=== PATIENT | male | born 1955 | race Caucasian/White ===

== ENCOUNTER → 2018-09-15 | Outpatient (CLI) | payer MEDICARE ==
--- NOTE | 2018-09-15 18:54 | US ---
Exam: LOWER EXTREMITY VENOUS INSUFFICIENCY DATE: 09/15/2018. SIDE PERFORMED: Bilateral TECHNIQUE: Color flow is present and patency is documented in the following vessels. FINDINGS: No DVT or SVT is noted. Vessels scanned: EIV Common Femoral Vein Deep Femoral Vein Femoral Vein Popliteal Vein Proximal Calf Veins Greater Saph Vein Upper Small Saph Vein There is venous reflux noted at the following venous levels: -Entire right system except mid and lower popliteal vein. -Left EIV, GSV, DFV, FV prox, mid, IMPRESSION: 1. No evidence for DVT within the bilateral lower extremities imaged from the groin to the upper calv es. 2. Venous reflux is noted throughout the right lower extremity except for the mid and lower popliteal vein. 3. Venous reflux is noted within the left external iliac vein, greater saphenous vein, deep femoral v ein, as well as the upper and mid femoral vein.
--- NOTE | 2018-09-21 10:01 | P.ARTDOP ---
Arterial Doppler LOWER EXTREMITY ARTERIAL DOPPLER: DATE OF SERVICE: 09/15/2018 Reason for study: Right lower leg ulcer. Doppler waveforms: Multiphasic bilaterally throughout. Pulse volume recording: Normal configuration. Some blunting at the digital level. Pressure gradients: None. Ankle-brachial indices: Greater than 1 bilaterally. Toe pressures: 110 on the right, 110 on the left Impression: Normal study.
== END ==
LOC: RADUSWWP 13:35
PROVIDERS: ATTEND Family Medicine
DX: I87.2 Venous insufficiency (chronic) (peripheral) (principal); M79.605 Pain in left leg
CPT/HCPCS: 93923; 93970

== ENCOUNTER → 2023-03-12 | Outpatient (CLI) | payer MEDICARE ==
[2023-03-12 16:21] LABS: Basophils # (A) 0.04 X 10*3/uL (0.00-0.10); Basophils % (A) 0.7 %; Eosinophils % (A) 6.8 %; HCT 39.2 % (39.6-50.0); HGB 12.4 g/dL (13.0-17.0); Immature Grans, Automated 0.3 %; Lymphocytes # (A) 0.99 X 10*3/uL (0.90-5.00); MCH 28.1 pg (27.0-32.0); MCHC 31.6 g/dL (32.0-37.0); MCV 88.7 fL (80.0-97.0); Mean Platelet Volume 10.6 fL (9.5-12.2); Monocytes # (A) 0.71 X 10*3/uL (0.20-1.00); Monocytes % (A) 12.2 %; NRBC Per 100 WBC 0 /100 WBCS (0.0-0.0); Neutrophils # (A) 3.68 X 10*3/uL (1.80-7.70); Platelet Count 194 X 10*3/uL (140-440); RBC 4.42 X 10*6/uL (4.40-5.60); RDW 14.1 % (11.5-14.5); WBC 5.84 X 10*3/uL (4.50-10.00)
[2023-03-12 16:47] LABS: Non-African American GFR(CKD) 68.1 (60.0-200.0)
[2023-03-12 17:07] LABS: Hepatitis B Surface Antigen Nonreactive (Nonreactive); Hepatitis C IgG Antibody Nonreactive (Nonreactive)
[2023-03-12 17:59] LABS: Hepatitis B Surface AB- Quant 3.5 mIU/mL; Hepatitis B Surface Antibody Nonreactive (Nonreactive)
== END | disposition home or self-care (01) ==
LOC: LABWHC1 10:10
PROVIDERS: ATTEND Student in an Organized Health Care Education/Training Program
DX: L40.0 Psoriasis vulgaris (principal)
CPT/HCPCS: 36415; 82565; 84450; 84460; 85025; 86480; 86704; 86706; 86803; 87340

== ENCOUNTER → 2023-06-18 | Outpatient (CLI) | payer MEDICARE ==
--- NOTE | 2023-06-18 12:40 | CA ---
Exercise Nuclear Stress Test Report Name: César Reyes Exam Date: 06/18/2023 10:01 Exam Location: [facility] Ht (in): 70 Wt (lb): 240 BSA: 2.26 Ordering Phys: Kyrie Salmeron MD Referring Phys: Kyrie Salmeron MD Technologist: Wolf Lorenzana Age: 67 Gender: M : 1955 Procedure CPT: Indications: I25.119 ATHSCL HEART DISEASE OF [place] COR I65.23 ICD-10 Codes: Patient History: Medications: Meds past 24 hrs: Pretest Chest Pain: STRESS TEST Protocol Exercise Duration (min:sec): 04:[address] Depressions (mm): Angina Score: Hassan Score: Resting HR (bpm): 123 Peak HR (bpm): 142 Resting BP (mmHg): 135 / 73 Peak BP (mmHg): 181 / 70 MPHR: 151 Target HR: 128 % MPHR: 94 METS: 6.6 Total Dose: Peak Dose: Atropine: Double Product: 61832 BP Response: Stress Termination: Reached target heart rate Stress Symptoms: SHORTNESS OF BREATH Stress Summary: ECG ANALYSIS Resting ECG: Sinus tachycardia with nonspecific T-wave flattening in lead III. heart rate 114 beats a minute Stress ECG: There was [address] depressions in inferolateral leads at peak stress. There were no sustained arrhythmias ectopic beats CONCLUSIONS Fair exercise tolerance for patient's age. Patient walked for 4 minutes and 10 seconds achieving 6.6 METS Normal hemodynamic and clinical response to exercise Abnormal ECG response to exercise. Please refer to the nuclear perfusion imaging report dictated separately by radiology team for complete interpretation of this study Dr Jr Salas (Electronically Signed) Final Date: 18 June 2023 12:39
--- NOTE | 2023-06-20 22:21 | US ---
EXAMINATION TYPE: US carotid duplex BILAT DATE OF EXAM: 06/18/2023 COMPARISON: NONE CLINICAL INDICATION: Male, 67 years old with history of I65.23 Carotid stenosis bilateral; CAD TECHNIQUE: Carotid duplex ultrasound examination. Indirect Doppler criteria was utilized. FINDINGS: EXAM MEASUREMENTS: RIGHT: Peak Systolic Velocity (PSV) cm/sec ----- Right CCA: 74.1 ----- Right ICA: 94.3 ----- Right ECA: 103 ICA/CCA ratio: 1.27 RIGHT: End Diastole cm/sec ----- Right CCA: 22.1 ----- Right ICA: 21.3 ----- Right ECA: 0.0 LEFT: Peak Systolic Velocity (PSV) cm/sec ----- Left CCA: 85.7 ----- Left ICA: 72.3 ----- Left ECA: 75.7 ICA/CCA ratio: 0.84 LEFT: End Diastole cm/sec ----- Left CCA: 19.8 ----- Left ICA: 27.0 ----- Left ECA: 4.0 VERTEBRALS (direction of flow): Right Vertebral: unable to visualize Left Vertebral: Antegrade Rhythm: Normal [employer] NOTES: Moderate plaque bilateral bifurcations. No evidence of increased velocities IMPRESSION: Less than 50% stenosis of the bilateral carotid bifurcations. Criteria for Assigning % of Stenosis / Diameter reduction (Estimation based on the indirect measurements of the internal carotid artery velocities (ICA PSV). 1. Normal (no stenosis)=ICA PSV < 125 cm/s: ratio < 2.0: ICA EDV<40 cm/s. 2. Less than 50% stenosis=ICA PSV < 125 cm/s: ratio < 2.0: ICA EDV<40 cm/s. 3. 50 to 69% stenosis=ICA PSV of 125 to 230 cm/s: ration 2.0 ? 4.0: ICA EDV 40-100 cm/s. 4. Greater than 70% stenosis to near occlusion= ICA PSV > 230 cm/s: ratio > 4.0: ICA EDV > 100 cm/s. 5. Near occlusion= ICA PSV velocities may be low or undetectable: variable ratio and ICA EDV. 6. Total occlusion=unable to detect flow.
== END | disposition home or self-care (01) ==
LOC: RADNMMAIN 07:57
PROVIDERS: ATTEND Internal Medicine
DX: I65.23 Occlusion and stenosis of bilateral carotid arteries (principal); I25.119 Atherosclerotic heart disease of native coronary artery with unspecified angina pectoris; R94.31 Abnormal electrocardiogram [ECG] [EKG]
CPT/HCPCS: 93017; 93880; 78452; A9500

== ENCOUNTER 2023-07-15 09:10 | Day surgery (SDC) | payer MEDICARE ==
[~2023-07-15 09:10] MED LIST: ALPRAZolam 0.25 MG TAB PO PRN; ALPRAZolam 0.5 MG TAB PO PRN; ASPIRIN 325 MG TAB PO STA; ATORVASTATIN 80 MG TAB PO STA; HEPARIN SODIUM,PORCINE (1 ML) 2,500 UNIT in SODIUM CHLORIDE 0.9% 250 ML IRRIGATION PRN; HEPARIN SODIUM,PORCINE 10,000 UNIT in SODIUM CHLORIDE 0.9% 1,000 ML IRRIGATION PRN; NITROGLYCERIN SL TABS 0.4 MG TAB SUBLINGUAL PRN
[2023-07-15] MEDS ORDERED: SODIUM CHLORIDE 0.9% 1,000 ML IV ONE (09:16)
[2023-07-15 09:30] VITALS: RESP 16
[2023-07-15 09:33] LABS: Glucose,Whole Blood 139 mg/dL (70-110)
[2023-07-15] MEDS ORDERED: HEPARIN SODIUM 1,000 UN/ML (10ML VL) ONE (10:34)
[2023-07-15] MEDS ORDERED: MIDAZOLAM 2 MG/2 ML VIAL IVP ONE ×2 (10:54→11:30)
[2023-07-15] MEDS ORDERED: LIDOCAINE 1% INJ 10MG/ML (20 ML MDV) SQ ONE (10:55)
[2023-07-15] MEDS ORDERED: VERAPAMIL SYRINGE (5 MG/10 ML) INTRAARTER ONE (10:56)
[2023-07-15] MEDS: HEPARIN SODIUM 1,000 UN/ML (10ML VL) IV ONE ×3 (10:58→11:29)
[2023-07-15] MEDS ORDERED: TICAGRELOR 90 MG TAB ONE (11:23)
[2023-07-15] MEDS ORDERED: TICAGRELOR 90 MG TAB PO ONE (11:25)
[2023-07-15] MEDS ORDERED: IOPAMIDOL-370 100ML BTL INJ ONE (11:47)
[2023-07-15] MEDS ORDERED: RISANKIZUMAB RZAA 150 MG/ML INJ SCH (12:00)
[2023-07-15] MEDS ORDERED: traMADol 50 MG TAB PO PRN (12:00)
[2023-07-15] MEDS ORDERED: ATROPINE SULFATE 0.1 MG/ML 10ML SYRINGE IV PRN (12:01)
[2023-07-15] MEDS ORDERED: ZOLPIDEM 5 MG TAB PO PRN (12:01)
[2023-07-15] MEDS ORDERED: RX INFO: IV CONTRAST WAS GIVEN 1 EACH MISC MISCELLANE PRN (12:01)
[2023-07-15] MEDS ORDERED: MAG HYDROX/AL HYDROX/SIMETH 30 ML CUP PO PRN (12:01)
[2023-07-15] MEDS ORDERED: NITROGLYCERIN SL TABS 0.4 MG TAB SUBLINGUAL PRN (12:01)
--- NOTE | 2023-07-15 12:13 | P.PCN ---
Date of Procedure: 07/15/23 Operative Findings: CARDIAC CATHETERIZATION AND PERCUTANEOUS CORONARY INTERVENTION PERFORMING PHYSICIAN: Donnell Gottlieb MD, VI PROCEDURE PERFORMED: 1. Selective right and left coronary angiogram 2. Successful stenting of proximal LAD using 3.25 x 18 mm Xience PORTIA with an excellent angiographic results 3. iFR of the LAD and left main and RCA 4. Adjunctive use of an the vascular imaging 5. Ultrasound guided access of the right radial artery INDICATION: This is a 68-year-old gentleman with CAD and prior stenting of the LAD and diagonal in 1995 as well as hypertension and dyslipidemia was experiencing symptoms of chest discomfort and he underwent myocardial perfusion imaging stress is that showed reversible defect anteriorly. In the light of that a heart catheterization was advised COMPLICATION: None APPROACH: Right radial artery LEVEL OF SEDATION: Moderate with the sedation time off 44 minutes PROCEDURE DESCRIPTION: After obtaining an informed consent the patient was brought to the cardiac catheter builder. The right radial artery was cannulated using puncture technique under ultrasound guidance and the micropuncture wire passed easily then I placed a 6- Turkmen 11 cm sheath at the right radial artery. I gave the patient 2 mg of verapamil intra-arterial and heparin IV was given with continuous ACT monitoring. After that I did selective right and left coronary angiogram using JR4 and JL 3.5 catheters. After that I did an FFR of the LAD and left main and then I did stenting of the LAD with adjunctive use of intravascular imaging. Subsequently I did an FFR of the right coronary artery. The procedure was completed was no complication SELECTIVE CORONARY ANGIOGRAM: The right coronary artery: Large caliber vessel and a dominant vessel. The RCA is calcified. The proximal and mid RCA has intermediate to severe lesion appears to be in the range of 60%. The lesion was flow limiting by Doppler wire. Please note that the RCA is calcified. The RCA distally appears to have mild disease only. Then it bifurcates into PDA and PLV branches. The PDA branch appeared to be angiographically normal. The PLV branch which is a large caliber vessel has ostial lesion appears to be in the range of 80%. Left main: Has intermediate lesion appeared to be in the range of 30-40%. We did a Doppler wire measurement and that came in to be nonischemic with iFR of 0.98 The left circumflex: Large caliber vessel and nondominant vessel. The proximal LCx appears to have intermediate lesion appeared to be in the range of 60-70%. Gives rise into an OM1 which has mild disease only. The left anterior descending artery: The proximal LAD stented by the bifurcation of a large diagonal branch which is a stented as well. The diagonal is closed. The stent appeared to have in-stent restenosis in the range of 60%. We did a Doppler measurement with iFR and that came in to be at 0.86. The mid LAD has mild disease only and LAD distally appears to have mild disease only PCI OF THE LAD: Anticoagulation was initiated using heparin with continuous ACT monitoring. Subsequently after equalizing between the Doppler wire and guiding catheter which was JL 3.5 guiding catheter the left main was engaged and the wire was advanced distal to the lesion in the mid LAD. The iFR came in to be at 0.86. I did pull back across the lesion in the LAD and I did perform iFR of the left main and that came in to be at 0.98. After that I decided to intervene on the LAD. I did wire the LAD using a run-through wire. Subsequently I did intravascular ultrasound and that showed a diameter around 3.25 mm. I predilated using 3 mm balloon before I deployed 3.25 x 18 mm stent where the stent was positioned under fluoroscopy guidance and deployed under 14 ashok. S ubsequently I postdilated using 3.5 mm noncompliant balloon. Final angiogram was performed and showed good angiographic results and then I did intravascular ultrasound again and that showed that the stent was well opposed and well expanded. After that I did iFR of the right coronary artery. After zeroing the Doppler wire and equalizing between the Doppler wire and guiding catheter which was JR4 guiding catheter I did advance the wire distal to the lesion in the mid right coronary artery. And the iFR came in to be abnormal at 0.79. The procedure was completed was no complication CONCLUSION: 1. Intermediate disease involving the mid shaft of the left main. The disease is not flow-limiting by Doppler wire 2. Intermediate in-stent restenosis of the proximal LAD. The disease is flow- limiting by Doppler wire. I did perform successful stenting of the LAD 3. Intermediate disease involving the proximal and mid RCA. The disease is flow-limiting by Doppler wire. POSTPROCEDURE MANAGEMENT: 1. Dual antiplatelet therapy using aspirin and Brilinta for at least 6 month 2. PCI of the RCA to be performed at the second session giving that we reached almost the maximum contrast limits of the patient
[2023-07-15] MEDS ORDERED: SODIUM CHLORIDE 0.9% 1,000 ML in EMPTY BAG 1 BAG IV SCH (12:15)
[2023-07-15 16:39] LABS: Glucose,Whole Blood 103 mg/dL (70-110)
[2023-07-15] MEDS: SODIUM CHLORIDE 0.9% 1,000 ML in EMPTY BAG 1 BAG IV SCH ×3 (18:49→23:39)
[2023-07-15 19:36] LABS: Glucose,Whole Blood 124 mg/dL (70-110)
[2023-07-15] MEDS: TICAGRELOR 90 MG TAB PO SCH (19:44)
[2023-07-15] MEDS: METOPROLOL SUCCINATE (ER) 50 MG TAB.ER.24H PO SCH (19:44)
[2023-07-15] MEDS: ISOSORBIDE MONONITRATE 20 MG TAB PO SCH (20:26)
[2023-07-16 05:43] LABS: Glucose,Whole Blood 123 mg/dL (70-110)
[2023-07-16 07:52] LABS: African American GFR (CKD) >90 (>60 ml/min/1.73 sqM); Non-African American GFR(CKD) 88 (>60 ml/min/1.73 sqM)
[2023-07-16] MEDS: ISOSORBIDE MONONITRATE 20 MG TAB PO SCH (08:02)
[2023-07-16] MEDS: METOPROLOL SUCCINATE (ER) 50 MG TAB.ER.24H PO SCH (08:02)
[2023-07-16] MEDS: TICAGRELOR 90 MG TAB PO SCH (08:02)
[2023-07-16 08:15] VITALS: BP 120/78; PULSE 80; TEMP 98.5
[2023-07-16] MEDS ORDERED: ASPIRIN 81 MG PO SCH (09:00)
[2023-07-16] MEDS ORDERED: LOSARTAN-HCTZ 50-12.5 MG 1 EACH TAB PO SCH (09:00)
[2023-07-16] MEDS ORDERED: ATORVASTATIN 40 MG TAB PO SCH (09:00)
[2023-07-16] MEDS ORDERED: MULTIVITAMINS, THERA 1 EACH TAB PO SCH (09:00)
--- NOTE | 2023-07-16 12:31 | P.DS ---
Providers Attending physician: Donnell Gottlieb Consults: 07/15/23 12:01 Consult Physician Routine Consulting Provider: [facility] Consult Reason/Comments: Post Interventional patient Do you want consulting provider notified?: Already Contacted Primary care physician: Kyrie Salmeron [facility] Course: The patient is a pleasant 68-year-old gentleman who underwent yesterday successful stenting of the LAD with a good angiographic results and with no complication Please refer to my procedure note for details The patient was seen and evaluated this morning. He is asymptomatic and hemodynamically stable. The patient is going to be discharged home on dual antiplatelet therapy and I will follow-up with the patient next week in the office Patient Condition at Discharge: Stable Plan - Discharge Summary Discharge Rx Participant: No New Discharge Prescriptions: New Ticagrelor [Brilinta] 90 mg PO BID #60 tab Nitroglycerin Sl Tabs [Nitrostat] 0.4 mg SUBLINGUAL Q5M PRN #100 tab PRN Reason: Chest Pain Continue Atorvastatin [Lipitor] 40 mg PO DAILY Aspirin 81 mg PO DAILY Metoprolol Succinate [Toprol XL] 50 mg PO BID Losartan/Hydrochlorothiazide [Losartan-Hctz 50-12.5 mg Tab] 1 tab PO DAILY metFORMIN HCL [Glucophage] 500 mg PO HS Isosorbide Mononitrate [Ismo] 20 mg PO BID Multivitamin [Men's Multi-Vitamin] 1 each PO DAILY Risankizumab-Rzaa [Skyrizi Pen] 1 dose INJ DIRECTED traMADol HCL 50 mg PO Q6H PRN PRN Reason: Pain Discharge Medication List Aspirin 81 mg PO DAILY 05/18/16 [History] Atorvastatin [Lipitor] 40 mg PO DAILY 05/18/16 [History] Isosorbide Mononitrate [Ismo] 20 mg PO BID 05/18/16 [History] Losartan/Hydrochlorothiazide [Losartan-Hctz 50-12.5 mg Tab] 1 tab PO DAILY 05/18/16 [History] Metoprolol Succinate [Toprol XL] 50 mg PO BID 05/18/16 [History] metFORMIN HCL [Glucophage] 500 mg PO HS 05/18/16 [History] Multivitamin [Men's Multi-Vitamin] 1 each PO DAILY 08/23/18 [History] Risankizumab-Rzaa [Skyrizi Pen] 1 dose INJ DIRECTED 09/28/23 [History] traMADol HCL 50 mg PO Q6H PRN 07/08/23 [History] Nitroglycerin Sl Tabs [Nitrostat] 0.4 mg SUBLINGUAL Q5M PRN #100 tab 07/16/23 [Rx] Ticagrelor [Brilinta] 90 mg PO BID #60 tab 07/16/23 [Rx] Follow up Appointment(s)/Referral(s): Donnell Gottlieb MD [STAFF PHYSICIAN] - 07/23/23 8:30 am (APPOINTMENT MADE ON July @ 8:30AM ) Patient Instructions/Handouts: Moderate Sedation (DC), Heart Catheterization (DC), After Radial Heart Catheterization (GEN) Activity/Diet/Wound Care/Special Instructions: NO DRIVING FOR TWO DAYS. OK TO SHOWER TOMORROW, REMOVE DRESSING FIRST. NO SOAKIN IN TUB, SWIMMING, DOING DISHES BY HAND (IF PUNCTURE IN WRIST) FOR FIVE DAYS. AVOID BENDING, PUSHING PULLING LIFTING GREATER THAN 5 LBS FOR FIVE DAYS. SIGNS OF INFECTION IE: FEVER, RASH, UNUSUAL DRAINAGE, SWELLING OR HARD KNOT ON PUNCTURE SITE CONTACT CARDIOLOGY OR GO TO ER TO BE FURTHER EVALUATED. IF PUNCTURE BLEEDS, APPLY FIRM DIRECT PRESSURE AND GO TO ER. DO NOT DRIVE SELF. MEDICATIONS DIRECTED BY CARDIOLOGY. Discharge Disposition: HOME SELF-CARE
== END 2023-07-16 11:15 | disposition home or self-care (01) ==
LOC: CATHCVL 09:10 → 3SCARD 11:40 → CATHCVL 07-16 11:15
PROVIDERS: ATTEND Internal Medicine Interventional Cardiology
DX: I25.10 Atherosclerotic heart disease of native coronary artery without angina pectoris (principal); I10 Essential (primary) hypertension; E78.5 Hyperlipidemia, unspecified; Z95.5 Presence of coronary angioplasty implant and graft; Z79.02 Long term (current) use of antithrombotics/antiplatelets; Z79.82 Long term (current) use of aspirin; Z79.899 Other long term (current) drug therapy; Z79.84 Long term (current) use of oral hypoglycemic drugs
CPT/HCPCS: 94760; 93571; 92978; 93454; 82565; C9600; C1769 ×4; C1887 ×2; C1894; C1753; C1874; C1725 ×2; J2250; J2001; J1644; Q9967

== ENCOUNTER → 2023-07-29 | Outpatient (CLI) | payer MEDICARE ==
[2023-07-29 16:39] LABS: Basophils # (A) 0.03 X 10*3/uL (0.00-0.10); Basophils % (A) 0.5 %; Eosinophils # (A) 0.23 X 10*3/uL (0.04-0.35); Eosinophils % (A) 3.9 %; HCT 38.7 % (39.6-50.0); HGB 12.6 d/dL (13.0-17.0); Lymphocytes # (A) 0.92 X 10*3/uL (0.90-5.00); Lymphocytes % (A) 15.8 %; MCH 28.7 pg (27.0-32.0); MCHC 32.6 d/dL (32.0-37.0); MCV 88.2 FL (80.0-97.0); Mean Platelet Volume 10.8 FL (9.5-12.2); Monocytes # (A) 0.52 X 10*3/uL (0.20-1.00); Monocytes % (A) 8.9 %; NRBC Per 100 WBC 0 X 10*3/uL (0.00-0.01); Neutrophils % (A) 70.4 %; Platelet Count 199 X 10*3/uL (140-440); RBC 4.39 X 10*6/uL (4.40-5.60); RDW 14.5 % (11.5-14.5); WBC 5.83 X 10*3/uL (4.50-10.00)
[2023-07-29 18:31] LABS: Blood Urea Nitrogen 17.5 mg/dL (9.0-27.0); Chloride 104 mmol/L (96-109); Sodium 140 mmol/L (135-145)
== END | disposition home or self-care (01) ==
LOC: LABPAT 08:45
PROVIDERS: ATTEND Internal Medicine Interventional Cardiology
DX: Z01.812 Encounter for preprocedural laboratory examination (principal); I25.10 Atherosclerotic heart disease of native coronary artery without angina pectoris
CPT/HCPCS: 80051; 82565; 84520; 85025

== ENCOUNTER 2023-08-06 08:45 | Day surgery (SDC) | payer MEDICARE ==
[~2023-08-06 08:45] MED LIST changes: -ATORVASTATIN 80 MG TAB PO STA
[2023-08-06] MEDS ORDERED: SODIUM CHLORIDE 0.9% 1,000 ML IV ONE (09:05)
[2023-08-06 09:19] LABS: Glucose,Whole Blood 140 mg/dL (70-110)
[2023-08-06] MEDS ORDERED: VERAPAMIL 2.5 MG/ML 2 ML AMP ONE (09:29)
[2023-08-06] MEDS ORDERED: HEPARIN SODIUM 1,000 UN/ML (10ML VL) ONE (09:30)
[2023-08-06] MEDS: SODIUM CHLORIDE 0.9% 1,000 ML in EMPTY BAG 1 BAG IV SCH ×4 (09:35→19:28)
[2023-08-06] MEDS ORDERED: MIDAZOLAM 2 MG/2 ML VIAL IVP ONE ×2 (09:45→10:02)
[2023-08-06] MEDS ORDERED: LIDOCAINE 1% INJ 10MG/ML (20 ML MDV) SQ ONE (09:46)
[2023-08-06] MEDS ORDERED: VERAPAMIL SYRINGE (5 MG/10 ML) INTRAARTER ONE (09:47)
[2023-08-06] MEDS: HEPARIN SODIUM 1,000 UN/ML (10ML VL) IV ONE ×3 (09:50→10:33)
[2023-08-06] MEDS ORDERED: fentaNYL (PF) 50 MCG/ML 2 ML AMP ONE (10:00)
[2023-08-06] MEDS ORDERED: fentaNYL (PF) 50 MCG/ML 2 ML AMP IVP ONE (10:02)
[2023-08-06] MEDS ORDERED: NITROGLYCERIN SL TABS 0.4 MG TAB SUBLINGUAL ONE ×2 (10:36→10:37)
[2023-08-06] MEDS ORDERED: IOPAMIDOL-370 100ML BTL INJ ONE (10:37)
[2023-08-06] MEDS ORDERED: traMADol 50 MG TAB PO PRN (10:42)
[2023-08-06] MEDS ORDERED: MAG HYDROX/AL HYDROX/SIMETH 30 ML CUP PO PRN (10:42)
[2023-08-06] MEDS ORDERED: ATROPINE SULFATE 0.1 MG/ML 10ML SYRINGE IV PRN (10:42)
[2023-08-06] MEDS ORDERED: RX INFO: IV CONTRAST WAS GIVEN 1 EACH MISC MISCELLANE PRN (10:42)
[2023-08-06] MEDS ORDERED: NITROGLYCERIN SL TABS 0.4 MG TAB SUBLINGUAL PRN ×2 (10:42)
[2023-08-06] MEDS ORDERED: ZOLPIDEM 5 MG TAB PO PRN (10:42)
[2023-08-06] MEDS ORDERED: SODIUM CHLORIDE 0.9% 1,000 ML in EMPTY BAG 1 BAG IV SCH (10:45)
[2023-08-06] MEDS ORDERED: RISANKIZUMAB RZAA 150 MG/ML INJ SCH (10:45)
--- NOTE | 2023-08-06 10:50 | P.PCN ---
Date of Procedure: 08/06/23 Operative Findings: PERCUTANEOUS CORONARY INTERVENTION Performing physician Donnell Gottlieb M.D. Procedure Performed: 1. Successful stenting of the RCA using 5.0 x 33 mm Xience drug-eluting stent with an excellent angiographic results. 2. Adjunctive use of intravascular ultrasound (IVUS) and lithotripsy balloon 3. Selective RCA angiogram 4. Ultrasound-guided access of the right radial artery Indication: This is a 68-year-old gentleman who is known to have CAD with prior stenting of the LAD and diagonal and known to have severe disease involving the RCA. He was brought today to undergo PCI of the RCA Approach: Right radial artery Complications: None Level of Sedation: Moderate with a sedation length of 52 minutes Procedure Discussion: After obtaining an informed consent the patient was brought to the cardiac lab tester. The right radial artery was cannulated using micropuncture technique under ultrasound guidance and the micropuncture wire passed easily then I placed a 6- German 11 cm sheath at the right radial artery. I gave the patient 2 mg of verapamil intra-arterial and 6000 use of heparin intravenous. Continuous ACT monitoring was performed throughout the procedure was additional heparin given with a total of 6000 units of heparin given. Selective right coronary angiogram was performed using JR4 guiding catheter. Subsequently the RCA was wired using a run-through wire. I did do intravascular ultrasound of the right coronary artery which showed extremely calcified right coronary artery and for that reason I decided to go ahead and do shockwave balloon. The vessel was about 5 mm in diameter. The largest shockwave balloon is 4 mm. I used 4 mm x 12 mm balloon. The balloon was inflated multiple times in the mid and proximal to mid and proximal right coronary artery. After that I deployed a 5.0 x 33 mm stent where the stent was positioned under fluoroscopy guidance and deployed under fluoroscopy guidance. The stent was deployed under 12 ashok. An angiogram was performed and subsequently I decided to do postdilated. I postdilated the RCA stent using 5 mm x 20 mm noncompliant balloon. Final angiogram was performed and subsequently intravascular ultrasound was performed as well. The flow was JERMAINE-3 flow. By the end of the procedure the patient was completely chest pain- free. Few minutes after the procedure he started experiencing chest discomfort and this is after the guidewire and the guiding catheter removed. I decided to go ahead again and take a picture of the RCA. So I engaged the RCA using the same JR4 guiding catheter and I did an RCA angiogram which showed finding the same as before was JERMAINE-3 flow in the right coronary artery we did not lose any acute marginal branch nor any conus branch. The procedure was completed was no complication. The patient chest discomfort started improving after he was given nitroglycerin sublingual. Postprocedure Management: 1. Continue dual antiplatelet therapy using aspirin and Brilinta for 12 month 2. Aggressive cholesterol control 3. Risk factors modification
[2023-08-06] MEDS ORDERED: DEXTROSE 50% SYRINGE 50 ML IVP PRN ×2 (16:43)
[2023-08-06 17:12] LABS: Glucose,Whole Blood 98 mg/dL (70-110)
[2023-08-06] MEDS: INSULIN ASPART (NovoLOG) 100 UNIT/ML VIAL SQ SCH ×2 (18:40→19:59)
[2023-08-06 19:59] LABS: Glucose,Whole Blood 164 mg/dL (70-110)
[2023-08-06] MEDS: ISOSORBIDE MONONITRATE 20 MG TAB PO SCH (20:00)
[2023-08-06] MEDS: TICAGRELOR 90 MG TAB PO SCH (20:00)
[2023-08-06] MEDS: METOPROLOL SUCCINATE (ER) 50 MG TAB.ER.24H PO SCH (20:00)
[2023-08-06 20:09] VITALS: RESP 17
[2023-08-07 04:10] VITALS: TEMP 98.1
[2023-08-07 05:27] LABS: Glucose,Whole Blood 138 mg/dL (70-110)
[2023-08-07] MEDS: INSULIN ASPART (NovoLOG) 100 UNIT/ML VIAL SQ SCH (05:45)
[2023-08-07 06:32] LABS: Basophils % (A) 0 %; Eosinophils # (A) 0.3 k/uL (0-0.7); Eosinophils % (A) 5 %; HCT 38.9 % (39.0-53.0); HGB 13.1 gm/dL (13.0-17.5); Lymphocytes # (A) 0.7 k/uL (1.0-4.8); Lymphocytes % (A) 13 %; MCHC 33.8 g/dL (31.0-37.0); MCV 85.7 fL (80.0-100.0); Mean Platelet Volume 8.6; Monocytes # (A) 0.4 k/uL (0-1.0); Monocytes % (A) 8 %; Neutrophils % (A) 72 %; Platelet Count 152 k/uL (150-450); Poikilocytosis Slight; RBC 4.53 m/uL (4.30-5.90); RDW 14.9 % (11.5-15.5); WBC 5.5 k/uL (3.8-10.6)
[2023-08-07 06:41] LABS: African American GFR (CKD) >90 (>60 ml/min/1.73 sqM); Non-African American GFR(CKD) >90 (>60 ml/min/1.73 sqM)
[2023-08-07 08:02] VITALS: BP 127/79; PULSE 79
[2023-08-07] MEDS ORDERED: ATORVASTATIN 40 MG TAB PO SCH (09:00)
[2023-08-07] MEDS ORDERED: MULTIVITAMINS, THERA 1 EACH TAB PO SCH (09:00)
[2023-08-07] MEDS ORDERED: ASPIRIN 81 MG PO SCH (09:00)
[2023-08-07] MEDS ORDERED: LOSARTAN-HCTZ 50-12.5 MG 1 EACH TAB PO SCH (09:00)
[2023-08-07] MEDS: METOPROLOL SUCCINATE (ER) 50 MG TAB.ER.24H PO SCH (09:20)
[2023-08-07] MEDS: ISOSORBIDE MONONITRATE 20 MG TAB PO SCH (09:20)
[2023-08-07] MEDS: TICAGRELOR 90 MG TAB PO SCH (09:20)
--- NOTE | 2023-08-07 09:30 | P.DS ---
Providers Attending physician: Donnell Gottlieb Consults: 08/06/23 10:43 Consult Physician Routine Consulting Provider: [facility] Consult Reason/Comments: Post Interventional patient Do you want consulting provider notified?: Already Contacted Primary care physician: Kyrie Salmeron [facility] Course: The patient is a 68-year-old gentleman who underwent yesterday successful stenting of the right coronary artery with good angiographic results and JERMAINE 3 flow. The patient was seen and evaluated this morning. He is asymptomatic. He reports no pain in the chest and more shortness of breath. He is hemodynamically stable. Overall he is doing well. The right radial site is soft and nontender with good pulse. The patient is going to be discharged home on dual antiplatelet therapy along with a statin to hold the metformin for 2 days and restarted the metformin in 48 hours. I will follow-up with the patient next week in the office Plan - Discharge Summary Discharge Rx Participant: No New Discharge Prescriptions: Continue Atorvastatin [Lipitor] 40 mg PO DAILY Aspirin 81 mg PO DAILY Metoprolol Succinate [Toprol XL] 50 mg PO BID Losartan/Hydrochlorothiazide [Losartan-Hctz 50-12.5 mg Tab] 1 tab PO DAILY Isosorbide Mononitrate [Ismo] 20 mg PO BID Multivitamin [Men's Multi-Vitamin] 1 each PO DAILY Risankizumab-Rzaa [Skyrizi Pen] 1 dose INJ DIRECTED Ticagrelor [Brilinta] 90 mg PO BID #60 tab Nitroglycerin Sl Tabs [Nitrostat] 0.4 mg SUBLINGUAL Q5M PRN #100 tab PRN Reason: Chest Pain traMADol HCL 50 mg PO Q6H PRN PRN Reason: Pain Discontinued metFORMIN HCL [Glucophage] 1,000 mg PO HS Discharge Medication List Aspirin 81 mg PO DAILY 05/18/16 [History] Atorvastatin [Lipitor] 40 mg PO DAILY 05/18/16 [History] Isosorbide Mononitrate [Ismo] 20 mg PO BID 05/18/16 [History] Losartan/Hydrochlorothiazide [Losartan-Hctz 50-12.5 mg Tab] 1 tab PO DAILY 08/05/26 [History] Metoprolol Succinate [Toprol XL] 50 mg PO BID 05/18/16 [History] Multivitamin [Men's Multi-Vitamin] 1 each PO DAILY 08/23/18 [History] Risankizumab-Rzaa [Skyrizi Pen] 1 dose INJ DIRECTED 07/08/23 [History] traMADol HCL 50 mg PO Q6H PRN 07/08/23 [History] Nitroglycerin Sl Tabs [Nitrostat] 0.4 mg SUBLINGUAL Q5M PRN #100 tab 07/16/23 [Rx] Ticagrelor [Brilinta] 90 mg PO BID #60 tab 07/16/23 [Rx] Follow up Appointment(s)/Referral(s): Donnell Gottlieb MD [STAFF PHYSICIAN] - 1 Week (APPOINTMENT ALREADY MADE ON August @ 3:30PM ) Patient Instructions/Handouts: Moderate Sedation (DC), After Radial Heart Catheterization (GEN) Activity/Diet/Wound Care/Special Instructions: *NO LIFTING, PUSHING, OR PULLING ANYTHING OVER 5 POUNDS FOR 5 DAYS *NO DRIVING FOR 3 DAYS *YOU CAN REMOVE YOUR DRESSING AND SHOWER TOMORROW BUT DO NOT SUBMERSE YOUR PUNCTURE SITE IN WATER FOR A FEW DAYS TO PREVENT INFECTION - SO NO TUB BATHS, POOLS, HOT TUBS, DISHES...ETC *ANY SIGNS OF BLEEDING (HARDNESS, SWELLING, OR EXCESSIVE BRUISING) HOLD DIRECT PRESSURE ON YOUR PUNCTURE SITE AND COME TO THE NEAREST EMERGENCY ROOM TO GET YOUR PUNCTURE SITE LOOKED AT - DO NOT DRIVE YOURSELF! EITHER CALL EMS OR HAVE SOMEONE ELSE DRIVE YOU!
== END 2023-08-07 10:27 | disposition home or self-care (01) ==
LOC: CATHCVL 08:45 → 6NMEDSUR 10:39 → CATHCVL 08-07 10:27
PROVIDERS: ATTEND Internal Medicine Interventional Cardiology
DX: I25.10 Atherosclerotic heart disease of native coronary artery without angina pectoris (principal); I10 Essential (primary) hypertension; E78.5 Hyperlipidemia, unspecified; E11.9 Type 2 diabetes mellitus without complications; F17.210 Nicotine dependence, cigarettes, uncomplicated; Z79.84 Long term (current) use of oral hypoglycemic drugs; Z79.899 Other long term (current) drug therapy; Z95.5 Presence of coronary angioplasty implant and graft; Z79.02 Long term (current) use of antithrombotics/antiplatelets; Z79.82 Long term (current) use of aspirin
CPT/HCPCS: 92978; 0715T; 76937; 82565; 85025; C1769 ×3; C9600; C1887; C1894; C1753; C1761; C1874; C1725; J2250; J2001; J3010; J1644; Q9967

== ENCOUNTER → 2024-02-11 | Outpatient (CLI) | payer MEDICARE ==
[2024-02-11 14:32] LABS: Basophils # (A) 0.05 X 10*3/uL (0.00-0.10); Basophils % (A) 0.7 %; Eosinophils # (A) 0.49 X 10*3/uL (0.04-0.35); Eosinophils % (A) 7.3 %; HCT 40.8 % (39.6-50.0); MCH 28.6 pg (27.0-32.0); MCHC 31.9 g/dL (32.0-37.0); MCV 89.7 FL (80.0-97.0); Mean Platelet Volume 10.5 FL (9.5-12.2); Monocytes # (A) 0.83 X 10*3/uL (0.20-1.00); Monocytes % (A) 12.4 %; NRBC Per 100 WBC 0 X 10*3/uL (0.00-0.01); Neutrophils # (A) 4.08 X 10*3/uL (1.80-7.70); Neutrophils % (A) 61.2 %; Platelet Count 231 X 10*3/uL (140-440); RBC 4.55 X 10*6/uL (4.40-5.60); RDW 15.3 % (11.5-14.5); WBC 6.68 X 10*3/uL (4.50-10.00)
[2024-02-11 16:00] LABS: ALT 29 U/L (10-49); AST 23 U/L (14-35)
== END | disposition home or self-care (01) ==
LOC: LABWHC1 11:33
PROVIDERS: ATTEND Dermatology
DX: L40.0 Psoriasis vulgaris (principal); Z79.899 Other long term (current) drug therapy
CPT/HCPCS: 36415; 82565; 84450; 84460; 85025; 86480